=== PATIENT | male | born 1980 | race Caucasian/White ===

== ENCOUNTER → 2022-01-24 | Outpatient (CLI) | payer OTHER ==
[~2022-01-24] MED LIST: AMITRIPTYLINE H50 MG PO; BUTALB-ACETAMI1 EAC1 PO; CELEXA20 MG PO; ELAVIL 50 MG TA50 MG PO; FIORICET PO; IBUPROFEN800 MG PO; PERCOCET 7.5-31 EACH PO; STOOL SOFTENER250 MG PO; ZOFRAN4 MG PO
== END ==
LOC: CT 12:30
DX: R31.0 Gross hematuria (principal); N20.0 Calculus of kidney
CPT/HCPCS: Q9967